=== PATIENT | female | born 1930 | race Caucasian/White ===

== ENCOUNTER → 2018-04-07 | Outpatient (CLI) | payer MEDICARE ==
[~2018-04-07] MED LIST: ALENDRONATE SOD35 MG PO; AMLODIPINE BESYL5 MG PO; ASPIRIN EC81 MG PO; ATORVASTATIN CA10 MG PO; DITROPAN XL10 MG PO; FISH OIL 1,4001 EACH PO; LEVOTHYROXINE50 MCG PO; MONTELUKAST SOD10 MG PO; MULTIVITAMIN PO; OMEPRAZOLE40 MG PO
--- NOTE | 2018-04-07 13:45 | Diagnostic Imaging Report ---
EXAMINATION: PA and lateral views of the chest. COMPARISON: CT chest with contrast 06/05/2015 report was available for review. Chest radiograph 06/13/2015 CLINICAL HISTORY: Panlobular emphysema DISCUSSION: Interval progression of coarse, diffuse interstitial opacities relative to the examination from June 17, 2015. No focal consolidation or effusion. No pneumothorax. Stable cardiomediastinal contour with tortuosity of the thoracic aorta. No acute osseous abnormality. Chronic deformity of the proximal right humerus with postsurgical change. Age indeterminate though likely chronic anterior compression deformities of the lower thoracic spine. Levoscoliotic lumbar curvature partially visualized. IMPRESSION: Progression of interstitial lung disease relative to 06/13/2015. Signed by: Dr. Rodrigo Mata M.D. on 04/07/2018 1:42 PM
== END ==
LOC: RAD 13:00
PROVIDERS: ATTEND Internal Medicine
DX: J43.1 Panlobular emphysema (principal)
CPT/HCPCS: 71046